=== PATIENT | male | born 1985 | race African-American/Black ===

== ENCOUNTER 2018-12-02 13:32 | Emergency (ER) | payer OTHER ==
[~2018-12-02] VITALS: Ht 190.5 cm; Wt 104.3 kg
[2018-12-02 13:58] VITALS: BP 120/80
[2018-12-02 14:02] LABS: ABSOLUTE NEUTROPHILS 6.1 thou/uL (1.4-8.2); BASOPHILS 0.4 % (0.0-2.0); EOSINOPHILS 1.4 % (0.0-3.0); HEMATOCRIT 49.2 % (42.0-52.0); HEMOGLOBIN 16.7 gm/dL (14.0-18.0); LYMPHOCYTES 12.4 % (24.0-44.0); MCHC 33.9 g/dL (28.0-37.0); MCV 100.3 fL (80.0-100.0); MONOCYTES 9.5 % (1.0-8.0); PLATELET COUNT 175 thou/uL (150-400); POLYS 76.3 % (36.0-66.0); RDW 11.7 % (10.5-14.5); WBC 7.9 thou/uL (4.0-11.0)
[2018-12-02 14:10] LABS: ANION GAP 7 mmol/L (7-16); BUN 11 mg/dL (7-18); CHLORIDE 100 mmol/L (98-107); CO2 29 mmol/L (21-32); CREATININE 1.3 mg/dL (0.7-1.3); GLUCOSE 150 mg/dL (74-106); SODIUM 136 mmol/L (136-145)
[2018-12-02] MEDS ORDERED: PEPCID40 MG PO (14:18)
[2018-12-02 14:20] LABS: ALBUMIN 4.1 g/dL (3.4-5.0); MAGNESIUM 2.3 mg/dL (1.8-2.4); SGOT 47 U/L (15-37); SGPT 68 U/L (30-65); TOTAL BILIRUBIN 0.7 mg/dL (<0.1-1.0); TOTAL PROTEIN 7.9 g/dL (6.4-8.2); TROPONIN-I <0.06 ng/mL (<0.06)
--- NOTE | 2018-12-03 07:49 | EKG ---
[address] [address] [place] [address] ELECTROCARDIOGRAM REPORT Name: BRUNA MARTINEZ Room #: DEP LOTTIE Alvarez#: [id number] ������������������ Admission: 12/02/18 ������������������ Attend Phys: Discharge: 12/02/18 ������������������ Date of : 87 Report #: [id number] ����������������������������������������������������������������� [id number] THIS REPORT FOR: //name// [facility] ED Test Date: 2018-12-02 Test Time: 13:30:28 Pat Name: BRUNA MARTINEZ Department: Room: Gender: M [employer] Associate: : 1985 Requested By: Jay Monaco Order Number: [id number] MD: Geronimo Majano Measurements Intervals [place] Rate: 62 P: 26 CA: 144 QRS: 51 QRSD: 84 T: 39 QT: 376 QTc: 382 Interpretive Statements Sinus rhythm ST elev, probable normal early repol pattern No previous ECG available for comparison Electronically Signed On 12-03-2018 7:49:37 CDT by Geronimo Majano [email or web address] ��������������������������������������������� <ELECTRONICALLY SIGNED> ���������������������������������������� By: Geronimo Majano MD, [facility] ��������������������������������������������� 12/03/18 0749 1330 1330 Geronimo Majano MD, FACC /EPI
== END 2018-12-02 14:38 | disposition home or self-care (01) ==
LOC: ER 13:32
PROVIDERS: Emergency Medicine
DX: R07.9 Chest pain, unspecified (principal); F17.210 Nicotine dependence, cigarettes, uncomplicated